=== PATIENT | male | born 1995 | race Caucasian/White ===

== ENCOUNTER 2016-11-22 20:19 | Emergency (ER) | payer OTHER ==
[~2016-11-22] VITALS: Ht 170.2 cm; Wt 81.6 kg
--- NOTE | 2016-11-22 22:26 | NUR ---
Patient discharged to home in stable conditon. Written and verbal after care instructions given. Patient and family verbalize understanding of instructions.
== END 2016-11-22 22:28 | disposition home or self-care (01) ==
LOC: ER 20:19
DX: S43.102A Unspecified dislocation of left acromioclavicular joint, initial encounter (principal); W18.39XA Other fall on same level, initial encounter; Y93.51 Activity, roller skating (inline) and skateboarding; Y92.9 Unspecified place or not applicable; Y99.9 Unspecified external cause status
CPT/HCPCS: 73030; A4663